=== PATIENT | male | born 1950 | race Caucasian/White ===

== ENCOUNTER 2019-10-13 21:11 | Observation (INO) ==
[2019-10-13] MEDS ORDERED: Aspirin 81 MG TAB.CHEW PO STA (21:31)
[2019-10-13 22:16] LABS: Basophils # 0.1 K/mcL (0.0-0.2); Eosinophils # 0.4 K/mcL (0.0-0.6); Eosinophils % 3.6 %; Hematocrit 32.9 % (37.5-50.1); Hemoglobin 11.3 g/dL (12.9-16.9); Immature Granulocytes % 1.1 % (0-4); Lymphocytes # 1.8 K/mcL (0.6-4.6); Lymphocytes % 17.3 %; Mean Corpuscular HGB Conc 34.3 g/dL (31.6-35.5); Mean Corpuscular Hemoglobin 33.4 pg (28.0-33.3); Mean Corpuscular Volume 97.3 fL (83.0-100.0); Mean Platelet Volume 8.3 fL (9.4-12.4); Monocytes # 1.8 K/mcL (0.0-1.3); Monocytes % 17.3 %; Neutrophils # 6.1 K/mcL (1.6-8.9); Platelet Count 543 K/mcL (140-400); Red Blood Count 3.38 M/mcL (4.19-5.50); Red Cell Distribution Width 13.4 % (11.5-14.5); Segmented Neutrophils % 59.7 %; White Blood Count 10.2 K/mcL (4.3-11.1)
[2019-10-13 22:32] LABS: Alanine Aminotransferase 21 Units/L (7-52); Albumin 3.6 g/dL (3.5-5.7); Albumin/Globulin Ratio 1.4 (1.1-2.2); Alkaline Phosphatase 80 Units/L (34-104); Aspartate Amino Transferase 14 Units/L (13-39); BUN/Creatinine Ratio 20 (6-26); Bilirubin,Total 0.3 mg/dL (0.3-1.0); Blood Urea Nitrogen 17 mg/dL (8-23); Calcium 9.2 mg/dL (8.6-10.3); Carbon Dioxide 26 mEq/L (23-29); Chloride 97 mEq/L (98-107); Globulin 2.6 g/dL (2.4-3.5); Glucose 90 mg/dL (70-105); Osmolality,Calculated 271 (280-300); Potassium 4.1 mEq/L (3.5-5.1); Sodium 130 mEq/L (136-145); Total Protein 6.2 g/dL (6.4-8.9); eGFR For African Americans > 60 (> 60); eGFR For Non-African Americans > 60 (> 60)
[2019-10-13 22:34] LABS: Acetaminophen < 10 mcg/mL (10-20); Ethanol < 10 mg/dL (Less than 10); Salicylate < 2.5 mg/dL (15.0-30.0)
[2019-10-13 22:35] LABS: Troponin I < 0.03 ng/mL (< 0.04)
[2019-10-13 23:50] LABS: Amphetamine Screen,Urine Negative ng/mL (Cutoff=1000); Barbiturate Screen,Urine Negative ng/mL (Cutoff=200); Benzodiazepines Screen,Urine Negative ng/mL (Cutoff=200); Cannabinoid Screen,Urine Negative ng/mL (Cutoff = 50); Cocaine Screen,Urine Negative ng/mL (Cutoff= 300); Opiate Screen,Urine Negative ng/mL (Cutoff=300); Phencyclidine Screen,Urine Negative ng/mL (Cutoff=25)
[2019-10-14 00:17] LABS: Bilirubin,Urine Negative (Negative); Blood,Urine Negative (Negative); Clarity,Urine Clear (Clear); Color,Urine Yellow (Yellow); Glucose,Urine (UA) Normal (Normal); Ketones,Urine Negative (Negative); Leukocyte Esterase,Urine Negative (Negative); Nitrite,Urine Negative (Negative); PH,Urine 6.5 pH Units (5.0-8.0); Protein,Urine Negative (Neg-Trace); Specific Gravity,Urine 1.015 (1.010-1.025); Urobilinogen,Urine Normal (Normal)
[2019-10-14] MEDS ORDERED: Naloxone 0.4 MG/ML INJ IVP PRN (00:28)
[2019-10-14] MEDS ORDERED: hydrOXYzine pamoate 25 MG CAPSULE PO PRN (02:49)
[2019-10-14] MEDS ORDERED: NON-FORMULARY MEDICATION 1 EACH EACH (Nicotine Polacrilex [Nicotine Lozenge] 2 MG) BC PRN (02:49)
[2019-10-14] MEDS ORDERED: Ipratropium/Albuterol Neb 3 ML IH PRN (02:49)
[2019-10-14] MEDS ORDERED: Melatonin 3 MG TABLET PO PRN (02:49)
[2019-10-14] MEDS: *HR* Heparin 5,000 UNIT/ML VIAL SQ SCH ×4 (05:54→20:46)
[2019-10-14] MEDS ORDERED: Regadenoson 0.4 MG/5 ML SYRINGE IVP ONE (07:31)
[2019-10-14] MEDS ORDERED: hydroCHLOROthiazide 25 MG TABLET PO SCH (09:00)
[2019-10-14] MEDS: hydrALAZINE 25 MG TABLET PO SCH ×3 (09:46→20:42)
[2019-10-14] MEDS: Cholecalciferol (D-3) 1,000 UNIT (25MCG) TABLET PO SCH (09:46)
[2019-10-14] MEDS: Lisinopril 20 MG TABLET PO SCH (09:46)
[2019-10-14] MEDS: Cyanocobalamin (B-12) 1,000 MCG TABLET PO SCH (09:46)
[2019-10-14] MEDS: Loratadine 10 MG TABLET PO SCH (09:46)
[2019-10-14] MEDS: Gabapentin 300 MG CAPSULE PO SCH ×3 (09:46→20:41)
[2019-10-14] MEDS: Nicotine 14 MG PATCH.TD24 TD SCH (09:47)
[2019-10-14] MEDS: carvediloL 6.25 MG TABLET PO SCH ×2 (13:24→16:47)
[2019-10-14] MEDS: Verapamil ER (24 HR) 240 MG TABLET.ER PO SCH (13:24)
[2019-10-14] MEDS ORDERED: Mirtazapine 15 MG TABLET PO SCH (21:00)
[2019-10-15] MEDS: *HR* Heparin 5,000 UNIT/ML VIAL SQ SCH (04:38)
[2019-10-15] MEDS: Loratadine 10 MG TABLET PO SCH (11:06)
[2019-10-15] MEDS: Lisinopril 20 MG TABLET PO SCH (11:06)
[2019-10-15] MEDS: Cyanocobalamin (B-12) 1,000 MCG TABLET PO SCH (11:06)
[2019-10-15] MEDS: Cholecalciferol (D-3) 1,000 UNIT (25MCG) TABLET PO SCH (11:06)
[2019-10-15] MEDS: hydrALAZINE 25 MG TABLET PO SCH (11:06)
[2019-10-15] MEDS: carvediloL 6.25 MG TABLET PO SCH (11:06)
[2019-10-15] MEDS: Gabapentin 300 MG CAPSULE PO SCH ×2 (11:06→15:39)
[2019-10-15] MEDS: Verapamil ER (24 HR) 240 MG TABLET.ER PO SCH (11:06)
[2019-10-15] MEDS: Nicotine 14 MG PATCH.TD24 TD SCH (11:11)
[2019-10-15 11:32] VITALS: BP 132/72
== END 2019-10-15 15:45 ==
LOC: EMEROOARM 21:11 → 3BNU 21:11 → SUATTDRO 10-14 00:22 → 3BNU 10-14 01:20
PROVIDERS: ADMIT Internal Medicine; ATTEND Internal Medicine